=== PATIENT | female | born 1970 | race African-American/Black ===

== ENCOUNTER 2020-08-13 04:35 | Inpatient (IN) | payer OTHER ==
[2020-08-12 09:20] VITALS: BMI 29.9
[2020-08-13 09:36] LABS: HEMATOCRIT 36.5 % (32.4-45.2); HEMOGLOBIN 12.2 GM/dL (10.7-15.3); MCH 29.9 pg (25.7-33.7); MCHC 33.3 g/dl (32.0-36.0); MEAN PLT VOLUME 8.8 fl (7.5-11.1); PLATELET COUNT 183 K/MM3 (134-434); RBC 4.06 M/mm3 (3.60-5.2); RDW 18.7 % (11.6-15.6); WHITE BLOOD COUNT 6.6 K/mm3 (4.0-10.0)
[2020-08-13 09:44] LABS: INR 1.03 (0.83-1.09); PROTHROMBIN TIME (PATIENT) 12.4 SEC (9.7-13.0)
[2020-08-13 09:46] LABS: ACTIVATED PTT 31.8 SECONDS (25.2-36.5)
[2020-08-13 10:03] LABS: CALCIUM 9.3 mg/dL (8.5-10.1)
[2020-08-13 10:04] LABS: ALBUMIN 3.9 g/dl (3.4-5.0)
[2020-08-13 10:06] LABS: CREATININE 0.8 mg/dL (0.55-1.3)
[2020-08-13 10:08] LABS: BILIRUBIN,TOTAL 0.6 mg/dL (0.2-1); TOT PROT 7.5 g/dl (6.4-8.2)
[2020-08-13] MEDS ORDERED: ceFAZolin SODIUM 1 GM VIAL ONE (11:57)
[2020-08-13] MEDS ORDERED: CEFAZOLIN 2 GM in DEXTROSE 5%-WATER - 100 ML IVPB ONE (12:00)
[2020-08-13] MEDS ORDERED: BUPIVACAINE LIPOSOME/PF (EXPAREL) 266 MG/20 ML VIAL ONE (13:41)
[2020-08-13] MEDS ORDERED: BUPIVACAINE HCL 100 ML ONE (13:41)
[2020-08-13] MEDS ORDERED: MIDAZOLAM HCL 2 MG/2 ML SINGLE DOSE VIAL ONE ×2 (13:42)
[2020-08-13] MEDS ORDERED: BACITRACIN 15 GM TUBE TOPICAL OINTMENT ONE (14:42)
[2020-08-13] MEDS ORDERED: BISACODYL 5 MG TABLET.DR (FP) PO PRN (15:50)
[2020-08-13] MEDS ORDERED: DOCUSATE SODIUM 100 MG CAPSULE (FP) PO PRN (15:50)
[2020-08-13] MEDS ORDERED: oxyCODONE HCL 5 MG TABLET PO PRN ×2 (15:50→16:05)
[2020-08-13] MEDS ORDERED: KETOROLAC TROMETHAMINE 30 MG/1 ML VIAL IVPUSH PRN (15:50)
[2020-08-13] MEDS ORDERED: ONDANSETRON 4 MG/2 ML VIAL IVPUSH PRN ×2 (15:50→16:05)
[2020-08-13] MEDS ORDERED: PROPOFOL 20 ML ONE (16:04)
[2020-08-13] MEDS ORDERED: PROMETHAZINE HCL 25 MG/1 ML VIAL IVPUSH PRN (16:05)
[2020-08-13] MEDS ORDERED: fentaNYL CITRATE 250 MCG/5 ML VIAL ONE (16:05)
[2020-08-13] MEDS ORDERED: ROCURONIUM BROMIDE 50 MG/5 ML SYRINGE ONE (16:08)
[2020-08-13] MEDS ORDERED: ceFAZolin SODIUM 1 GM VIAL IVPB ONE (16:30)
[2020-08-13] MEDS ORDERED: NEOSTIGMINE METHYLSULFATE 0.5 MG/ML - 10 ML MDV ONE (18:26)
[2020-08-13] MEDS ORDERED: BENZOIN/ALOE VERA/STORAX/TOLU 58 ML BOTTLE ONE (18:51)
[2020-08-13] MEDS ORDERED: HYDROmorphone *PCA* 10MG/50ML DISP.SYRIN ONE (19:39)
[2020-08-13] MEDS: HYDROmorphone *PCA* 10MG/50ML DISP.SYRIN PCA SCH (19:45)
[2020-08-13] MEDS ORDERED: ONDANSETRON 4 MG/2 ML VIAL ONE (19:59)
[2020-08-13] MEDS ORDERED: KETOROLAC TROMETHAMINE 30 MG/1 ML VIAL ONE (19:59)
[2020-08-13] MEDS ORDERED: ACETAMINOPHEN INJECTION 100 ML IVPB ONE (19:59)
[2020-08-13] MEDS: ONDANSETRON 4 MG/2 ML VIAL IVPUSH PRN (20:00)
[2020-08-13] MEDS: KETOROLAC TROMETHAMINE 30 MG/1 ML VIAL IVPUSH PRN (20:05)
[2020-08-13] MEDS: ACETAMINOPHEN 1000 MG/100 ML VIAL (NON FORMULARY) IVPB PRN (20:15)
[2020-08-13] MEDS ORDERED: PROMETHAZINE HCL 25 MG/1 ML VIAL ONE (20:23)
[2020-08-13] MEDS: SODIUM CHLORIDE 1,000 ML IV SCH (23:27)
[2020-08-14] MEDS: CEFAZOLIN 1 GM/D5W 1 GM/50 ML BAG IVPB SCH ×2 (00:17→08:41)
[2020-08-14] MEDS: ONDANSETRON 4 MG/2 ML VIAL IVPUSH PRN (07:45)
[2020-08-14] MEDS ORDERED: PCA PUMP NR ONE (07:53)
[2020-08-14 08:23] LABS: HEMATOCRIT 29.5 % (32.4-45.2); HEMOGLOBIN 9.9 GM/dL (10.7-15.3); MCH 30.4 pg (25.7-33.7); MCHC 33.7 g/dl (32.0-36.0); MEAN CELL VOLUME 90.3 fl (80-96); MEAN PLT VOLUME 9.9 fl (7.5-11.1); PLATELET COUNT 164 K/MM3 (134-434); RBC 3.27 M/mm3 (3.60-5.2); RDW 19.1 % (11.6-15.6); WHITE BLOOD COUNT 11.5 K/mm3 (4.0-10.0)
[2020-08-14 08:50] LABS: BLOOD UREA NITROGEN 11.5 mg/dL (7-18)
[2020-08-14 08:53] LABS: CREATININE 0.8 mg/dL (0.55-1.3)
[2020-08-14 09:18] LABS: CALCIUM 7.7 mg/dL (8.5-10.1)
[2020-08-14] MEDS ORDERED: oxyCODONE HCL 5 MG TABLET PO PRN (10:00)
[2020-08-14] MEDS: HYDROmorphone *PCA* 10MG/50ML DISP.SYRIN PCA SCH (10:34)
[2020-08-14] MEDS: ACETAMINOPHEN 1000 MG/100 ML VIAL (NON FORMULARY) IVPB PRN (11:18)
[2020-08-14] MEDS: ENOXAPARIN NA (PORCINE) 40 MG/0.4 ML DISP.SYRIN SQ SCH (12:39)
[2020-08-14] MEDS: SIMETHICONE 80 MG TAB.CHEW (FP) PO PRN ×2 (15:19→20:30)
[2020-08-14] MEDS: KETOROLAC TROMETHAMINE 30 MG/1 ML VIAL IVPUSH PRN (15:42)
[2020-08-14] MEDS ORDERED: ACETAMINOPHEN 325 MG TABLET (FP) PO PRN (21:22)
[2020-08-14] MEDS: oxyCODONE HCL 5 MG TABLET PO PRN (22:28)
[2020-08-15] MEDS ORDERED: CEFAZOLIN 1 GM in DEXTROSE 5%-WATER - 50 ML IVPB SCH
[2020-08-15] MEDS: SODIUM CHLORIDE 1,000 ML IV SCH ×2 (01:33→10:00)
[2020-08-15] MEDS: oxyCODONE HCL 5 MG TABLET PO PRN ×3 (04:49→20:56)
[2020-08-15 07:46] LABS: BASO % 0.3 % (0-2.0); EOS % 1.1 % (0-4.5); HEMATOCRIT 24.8 % (32.4-45.2); HEMOGLOBIN 8.4 GM/dL (10.7-15.3); LYMPH % 25.8 % (8-40); MCH 30.6 pg (25.7-33.7); MCHC 33.7 g/dl (32.0-36.0); MEAN CELL VOLUME 90.8 fl (80-96); MEAN PLT VOLUME 9.4 fl (7.5-11.1); MONO % 10.1 % (3.8-10.2); NEUT % 62.7 % (42.8-82.8); PLATELET COUNT 128 K/MM3 (134-434); RBC 2.74 M/mm3 (3.60-5.2); RDW 18.5 % (11.6-15.6); WHITE BLOOD COUNT 6.3 K/mm3 (4.0-10.0)
[2020-08-15 07:54] LABS: CALCIUM 7.4 mg/dL (8.5-10.1)
[2020-08-15 07:58] LABS: CREATININE 0.7 mg/dL (0.55-1.3)
[2020-08-15] MEDS ORDERED: IBUPROFEN 600 MG TABLET (FP) PO PRN (08:00)
[2020-08-15] MEDS: ENOXAPARIN NA (PORCINE) 40 MG/0.4 ML DISP.SYRIN SQ SCH (09:16)
[2020-08-15] MEDS: SIMETHICONE 80 MG TAB.CHEW (FP) PO PRN (10:47)
[2020-08-15] MEDS ORDERED: BISACODYL 10 MG SUPP.RECT PR PRN (11:17)
[2020-08-15 12:47] LABS: EPI CELLS >36 /uL (0-25.1); HYALINE CASTS 2 /uL (0-3.1); PH,URINE 5.5 (5.0-8.0); URINE APPEARANCE CLOUDY; URINE BACTERIA 462 /uL (0-1359); URINE BILIRUBIN NEGATIVE (NEGATIVE); URINE COLOR YELLOW; URINE GLUCOSE (UA) NEGATIVE (NEGATIVE); URINE KETONE NEGATIVE (NEGATIVE); URINE LEUK ESTERASE TRACE (NEGATIVE); URINE NITRITE NEGATIVE (NEGATIVE); URINE PROTEIN 1+ (NEGATIVE); URINE RBC 3195 /uL (0-23.9); URINE UROBILINOGEN 0.2 mg/dL (0.2-1.0); URINE WBC 73 /uL (0-25.8)
[2020-08-16] MEDS: oxyCODONE HCL 5 MG TABLET PO PRN (02:02)
[2020-08-16 04:28] VITALS: BP 132/87; PULSE 93; TEMP 100
[2020-08-16 08:51] LABS: BASO % 0.5 % (0-2.0); EOS % 2.1 % (0-4.5); HEMOGLOBIN 8.6 GM/dL (10.7-15.3); LYMPH % 29.2 % (8-40); MCH 30.2 pg (25.7-33.7); MCHC 33.2 g/dl (32.0-36.0); MEAN CELL VOLUME 91.2 fl (80-96); MEAN PLT VOLUME 10.2 fl (7.5-11.1); MONO % 9.2 % (3.8-10.2); PLATELET COUNT 155 K/MM3 (134-434); RBC 2.85 M/mm3 (3.60-5.2); RDW 18.5 % (11.6-15.6); WHITE BLOOD COUNT 6.1 K/mm3 (4.0-10.0)
[2020-08-16 09:05] LABS: ALBUMIN 3.1 g/dl (3.4-5.0); BLOOD UREA NITROGEN 7.2 mg/dL (7-18); CALCIUM 8.4 mg/dL (8.5-10.1)
[2020-08-16 09:09] LABS: CREATININE 0.7 mg/dL (0.55-1.3)
[2020-08-16 09:10] LABS: BILIRUBIN,TOTAL 0.6 mg/dL (0.2-1); TOT PROT 6.2 g/dl (6.4-8.2)
== END 2020-08-16 11:42 | disposition home or self-care (01) | DRG 519 ==
LOC: JASUSAT 04:35 → EDSTATUS 13:00 → J6S 19:10
PROVIDERS: ADMIT Specialist; ATTEND Specialist
PROC: 0UT60ZZ Resection of Left Fallopian Tube, Open Approach (ICD-10-PCS; 2020-08-13)
PROC: 0UT10ZZ Resection of Left Ovary, Open Approach (ICD-10-PCS; 2020-08-13)
PROC: 0DNE0ZZ Release Large Intestine, Open Approach (ICD-10-PCS; 2020-08-13)
PROC: 0TNB0ZZ Release Bladder, Open Approach (ICD-10-PCS; 2020-08-13)
PROC: 8E0W0CZ Robotic Assisted Procedure of Trunk Region, Open Approach (ICD-10-PCS; 2020-08-13)
PROC: 0DNW0ZZ Release Peritoneum, Open Approach (ICD-10-PCS; 2020-08-13)
PROC: 0UT90ZL Resection of Uterus, Supracervical, Open Approach (ICD-10-PCS; principal; 2020-08-13 13:00)
DX: D25.1 Intramural leiomyoma of uterus (principal); N92.0 Excessive and frequent menstruation with regular cycle; R10.2 Pelvic and perineal pain; N73.6 Female pelvic peritoneal adhesions (postinfective); D64.9 Anemia, unspecified; R31.9 Hematuria, unspecified
CPT/HCPCS: 36415; 74018-TC-FY; 80048; 80053; 81003; 81025; 85025; 85027; 85610; 85730; 86850; 86900; 86901; 87086; 87186; 88307-TC; 94760; J0131